=== PATIENT | female | born 1950 | race Hispanic/Latino ===

== ENCOUNTER 2018-02-08 21:43 | Emergency (ER) | payer MEDICARE ==
[2018-02-08] MEDS ORDERED: Ketorolac Tromethamine 30 MG/ML VIAL ONE (22:55)
[2018-02-08] MEDS ORDERED: Morphine 4 MG/ML VIAL ONE (22:55)
[2018-02-08] MEDS ORDERED: Dexamethasone 4 mg/ml Vial ONE (22:56)
--- NOTE | 2018-02-08 22:58 | RAD ---
LUMBAR SPINE THREE VIEWS: HISTORY: A 67-year-old female with low back pain. COMPARISON: 01/04/2014 FINDINGS: Postoperative laminectomy and pedicle screw placement at L5-S1 with an intradiskal prosthesis. There is evidence for a gallstone seen in the right upper quadrant region. Generalized disk osteophytosis and facet arthrosis, evidence for spondylosis. No evidence for acute compression fracture. IMPRESSION: 1. Postoperative changes at L5-S1. 2. Lumbar spondylosis. 3. Evidence for a gallstone. POS: JUHI
[2018-02-08 23:21] LABS: #Basophils 0.1 thou/uL (0.0-0.2); #Eosinphils 0.1 thou/uL (0.0-0.7); #Lymphocytes 2.6 thou/uL (1.20-3.40); #Monocytes 0.6 thou/uL (0.11-0.59); #Neutrophils 3.1 thou/uL (1.40-6.50); %Basophils 0.8 % (0.0-1.0); %Eosinophils 1.7 % (0.0-10.0); %Lymphocytes 41.1 % (21.0-51.0); %Monocytes 8.6 % (0.0-10.0); %Neutrophils 47.9 % (42.0-75.0); Hemoglobin 11.9 g/dL (12.0-16.0); Mean Corpuscular HGB CONC 34.3 g/dL (32.0-36.0); Mean Corpuscular Hemoglobin 29.8 pg (27.0-31.0); Mean Corpuscular Volume 87.1 fl (81.0-99.0); Mean Platelet Volume 8.6 fL (7.4-10.4); Platelet Count 211 thou/uL (130-400); RBC Distribution Width 12.3 % (11.5-14.5); White Blood Cell (WBC) Count 6.4 thou/uL (4.8-10.8)
[2018-02-08 23:47] LABS: ALT (SGPT) 18 U/L (8-55); AST (SGOT) 16 U/L (5-34); Albumin 3.6 g/dL (3.4-4.8); Alkaline Phosphatase 82 U/L (40-150); Anion Gap 11 mmol/L (10-20); BUN (Urea Nitrogen) 13 mg/dL (9.8-20.1); Bilirubin, Total 0.2 mg/dL (0.2-1.2); Calc. Creatinine Clearance 0 mL/min (70-130); Calcium 8.8 mg/dL (7.8-10.44); Carbon Dioxide 27 mmol/L (23-31); Chloride 107 mmol/L (98-107); Estimated GFR-MDRD 78; Globulin 3.4 g/dL (2.4-3.5); Glucose 199 mg/dL (80-115); Potassium 3.5 mmol/L (3.5-5.1); Sodium 141 mmol/L (136-145)
[2018-02-09] MEDS ORDERED: HYDROcodone/Acetaminophen 10/325 mg Tablet ONE (00:55)
[2018-02-09 01:15] LABS: Bilirubin Negative (Negative); Blood, Urine Negative (Negative); Clarity CLEAR (Clear); Glucose, Urine (Dipstick) 100 mg/dL (Negative); Leukocyte Trace (Negative); Nitrite Negative (Negative); Protein, Urine (Dipstick) Negative (Neg-Trace); Specific Gravity, Urine 1.009 (1.002-1.036); pH, Urine 7.5 (5.0-9.0)
[2018-02-09 01:16] LABS: Bacteria/HPF None Seen HPF (None Seen); Hyaline Casts/LPF 0-3 HYALINE CAST LPF (0-3 Hyaline); RBC/HPF 0-3 HPF (0-3); Squamous Epithelial 0-3 HPF (0-3); WBC/HPF 0-3 HPF (0-3)
== END 2018-02-09 01:33 | disposition home or self-care (01) ==
LOC: ERS 21:43
DX: M54.16 Radiculopathy, lumbar region (principal); I10 Essential (primary) hypertension; E11.40 Type 2 diabetes mellitus with diabetic neuropathy, unspecified; Z79.899 Other long term (current) drug therapy
CPT/HCPCS: 72100; 80053; 81003; 81015; 85025; 96374; 96375; J1100; J1885; J2270

== ENCOUNTER 2018-06-24 10:21 | Emergency (ER) | payer MEDICARE | END 2018-06-24 10:48 | disposition home or self-care (01) | LOC: ERS 10:21 | DX: M72.2 Plantar fascial fibromatosis (principal); I10 Essential (primary) hypertension; E78.5 Hyperlipidemia, unspecified; E11.40 Type 2 diabetes mellitus with diabetic neuropathy, unspecified | CPT/HCPCS: 99283 ==

== ENCOUNTER 2018-08-19 12:09 | Emergency (ER) | payer MEDICARE | END 2018-08-19 12:24 | disposition home or self-care (01) | LOC: ERS 12:09 | DX: S00.83XA Contusion of other part of head, initial encounter (principal); E11.9 Type 2 diabetes mellitus without complications; I10 Essential (primary) hypertension; E78.5 Hyperlipidemia, unspecified; Z79.899 Other long term (current) drug therapy; W20.8XXA Other cause of strike by thrown, projected or falling object, initial encounter | CPT/HCPCS: 99283 ==

== ENCOUNTER 2019-02-10 20:58 | Observation (INO) | payer MEDICARE, OTHER ==
[2019-02-10 21:24] LABS: #Basophils 0.1 thou/uL (0.0-0.2); #Eosinphils 0.1 thou/uL (0.0-0.7); #Lymphocytes 2.5 thou/uL (1.20-3.40); #Monocytes 0.6 thou/uL (0.11-0.59); #Neutrophils 4.1 thou/uL (1.40-6.50); %Basophils 0.9 % (0.0-1.0); %Eosinophils 1.3 % (0.0-10.0); %Lymphocytes 34.3 % (21.0-51.0); %Monocytes 8.2 % (0.0-10.0); %Neutrophils 55.3 % (42.0-75.0); Hemoglobin 12.4 g/dL (12.0-16.0); Mean Corpuscular Hemoglobin 28.8 pg (27.0-31.0); Mean Corpuscular Volume 87.2 fL (78.0-98.0); Mean Platelet Volume 9.1 fL (7.4-10.4); Platelet Count 248 thou/uL (130-400); Red Blood Cell (RBC) Count 4.31 mill/uL (4.20-5.40); White Blood Cell (WBC) Count 7.4 thou/uL (4.8-10.8)
--- NOTE | 2019-02-10 21:47 | RAD ---
XR Chest 1 View Portable History: [Chest pain] Comparison: Radiograph 2014 Findings: Mild blunting left lateral costophrenic sulcus. Calcified granulomas right lung base. No pn eumothorax. Cardiac silhouette and mediastinal contours are within normal limits. Impression: Left basilar atelectasis.
[2019-02-10] MEDS ORDERED: Ondansetron PF 4 MG/2 ML Vial ONE (21:52)
[2019-02-10 21:54] LABS: ALT (SGPT) 18 U/L (8-55); AST (SGOT) 14 U/L (5-34); Alkaline Phosphatase 75 U/L (40-150); Anion Gap 11 mmol/L (10-20); BUN (Urea Nitrogen) 8 mg/dL (9.8-20.1); Bilirubin, Total 0.2 mg/dL (0.2-1.2); CK (CPK) 56 U/L (29-168); Calc. Creatinine Clearance 0 mL/min (70-130); Calcium 9.5 mg/dL (7.8-10.44); Carbon Dioxide 28 mmol/L (23-31); Chloride 107 mmol/L (98-107); Estimated GFR-MDRD 82; Globulin 2.9 g/dL (2.4-3.5); Glucose 107 mg/dL (80-115); Potassium 3.4 mmol/L (3.5-5.1); Protein, Total 6.9 g/dL (6.0-8.3); Sodium 143 mmol/L (136-145)
[2019-02-10] MEDS ORDERED: Nitroglycerin 0.4 MG TAB 1 EACH ONE (22:50)
[2019-02-10] MEDS ORDERED: Acetaminophen 500 MG TAB ONE (22:50)
[2019-02-10] MEDS ORDERED: Aspirin Chewable 81 MG TAB ONE (22:50)
[2019-02-10] MEDS ORDERED: Pregabalin 75 MG CAP PO SCH (23:00)
[2019-02-10] MEDS ORDERED: Acetaminophen 325 MG TAB PO PRN (23:49)
[2019-02-10] MEDS ORDERED: Ondansetron ODT 4 MG TAB PO PRN (23:49)
--- NOTE | 2019-02-11 00:03 | PDOC.FPRHP ---
- History of Present Illness Chief Complaint: chest pain History of Present Illness: This is a 68yo F who presents to the ED for chest pain for the past 3- 4 days. PMH significant for DM and HTN. She states that pain has been intermittent. Describes the pain as sharp in character, starting in the middle of her chest and radiating across the left breast. She states the pain is associated with SOB, dizziness, nausea, and sweating. Endorses palpitations over the last few days. She did have 3 episodes of vomiting over the past few days. She reports that she also had episodes where she felt a heavy pressure on her chest. She endorses that she has been anxious lately - she is planning on getting and her fiance has been gone for 4 months. He is going to be returning soon and she feels "love struck." She also reports abdominal pain that has been present for many months. She states this is a dull pain and is worse after large meals. She feels bloated. She has had a 10lb weight loss over the past couple months that has been intentional with dieting. ED Course: nitro SL, tylneol, ASA, lyrica, zofran - Allergies/Adverse Reactions Allergies Allergy/AdvReac Type Severity Reaction Status Date / Time latex Allergy Intermediate "broke out" Verified 02/11/19 00:56 buprenorphine [From Butrans] Allergy Unknown Verified 02/11/19 00:56 meperidine HCl [From Demerol] Allergy Verified 02/11/19 00:56 - Home Medications Medication Instructions Recorded Confirmed Type Pregabalin [Lyrica] 150 mg PO TID 11/09/13 02/11/19 History traMADol HCl [Ultram] 50 mg PO Q6HR PRN 11/09/13 02/11/19 History Pantoprazole [Protonix] 40 mg PO DAILY 06/14/14 02/11/19 History Atorvastatin Calcium 20 mg PO QPM 02/07/15 02/11/19 History Linaclotide [Linzess] 145 mcg PO ASDIR 02/11/19 02/11/19 History metFORMIN HCl [Metformin HCl ER] 750 mg PO BID 02/11/19 02/11/19 History - History PMHx: DM, HTN, HLD PSHx: lipoma removal, carpal tunnel on right, knee surgery (L), back surgery FHx: Mother: DM, stomach cancer; Dad: aneurysm brain; sister: brain cancer Social: Denies alcohol, drug, or tobacco use - Review of Systems General: reports: weight/appetite/sleep changes (weight loss, intentional). denies: fever/chills, fatigue ENT: denies: nasal congestion, rhinorrhea Respiratory: reports: shortness of breath. denies: cough, congestion Cardiovascular: reports: chest pain, palpitation. denies: edema, paroxysmal nocturnal dyspnea, orthopnea Gastrointestinal: reports: nausea, vomiting. denies: diarrhea, constipation, abdominal pain Genitourinary: denies: dysuria Skin: denies: rashes, lesions Musculoskeletal: denies: pain, tenderness, stiffness, swelling Neurological: denies: syncope, weakness Psychological: reports: anxiety - Vital signs BP: 165/87, Pulse: 79, Resp: 18, Temp: 98.6 (Oral), Pain: 6, O2 sat: 95 on Room Air, Time: 02/10/2019 21:00. BP: 124/75, Pulse: 64, Resp: 18, O2 sat: 98 on Room Air, Time: 02/10/2019 23:53. - Physical Exam Constitutional: NAD, awake, alert and oriented, well developed HEENT: normocephalic and atraumatic, PERRLA, EOMI, grossly normal vision, grossly normal hearing, MMM Neck: supple, FROM, trachea midline, no JVD, no thyromegaly, no bruits Chest: no lesions -Chest: TTP sternum and upper left chest Heart: RRR, normal S1/S2, no murmurs/rubs/gallops, pulses present, no edema Lungs: CTAB, no respiratory distress, good air movement, no wheezing, no retractions Abdomen: soft -Abdomen: TTP in midepigastrium Musculoskeletal: normal structure, normal tone, ROM grossly normal Neurological: no focal deficit Skin: no rash/lesions, good turgor, capillary refill <2 seconds Psychiatric: normal mood and affect FMR H&P: Results - Labs Result Diagrams: 02/10/19 21:17 02/10/19 21:17 Lab results: WBC 7.4 thou/uL (4.8-10.8) 02/10/19 21:17 Hgb 12.4 g/dL (12.0-16.0) 02/10/19 21:17 Hct 37.5 % (36.0-47.0) 02/10/19 21:17 MCV 87.2 fL (78.0-98.0) 02/10/19 21:17 Plt Count 248 thou/uL (130-400) 02/10/19 21:17 Neutrophils % 55.3 % (42.0-75.0) 02/10/19 21:17 Sodium 143 mmol/L (136-145) 02/10/19 21:17 Potassium 3.4 mmol/L (3.5-5.1) L 02/10/19 21:17 Chloride 107 mmol/L (98-107) 02/10/19 21:17 Carbon Dioxide 28 mmol/L (23-31) 02/10/19 21:17 BUN 8 mg/dL (9.8-20.1) L 02/10/19 21:17 Creatinine 0.71 mg/dL (0.6-1.1) 02/10/19 21:17 Glucose 107 mg/dL (80-115) 02/10/19 21:17 Calcium 9.5 mg/dL (7.8-10.44) 02/10/19 21:17 Total Bilirubin 0.2 mg/dL (0.2-1.2) 02/10/19 21:17 AST 14 U/L (5-34) 02/10/19 21:17 ALT 18 U/L (8-55) 02/10/19 21:17 Alkaline Phosphatase 75 U/L (40-150) 02/10/19 21:17 Creatine Kinase 56 U/L (29-168) 02/10/19 21:17 Serum Total Protein 6.9 g/dL (6.0-8.3) 02/10/19 21:17 Albumin 4.0 g/dL (3.4-4.8) 02/10/19 21:17 Lipase 39 U/L (8-78) 02/10/19 21:17 - Radiology Interpretation Chest x-ray Status: report reviewed by me (Left basilar atelectasis) FMR H&P: A/P - Problem List (1) Chest pain Current Visit: No Status: Acute Code(s): R07.9 - CHEST PAIN, UNSPECIFIED (2) Diabetes mellitus Current Visit: No Status: Acute Code(s): E11.9 - TYPE 2 DIABETES MELLITUS WITHOUT COMPLICATIONS (3) GERD (gastroesophageal reflux disease) Current Visit: No Status: Acute Code(s): K21.9 - GASTRO-ESOPHAGEAL REFLUX DISEASE WITHOUT ESOPHAGITIS (4) Hypertension Current Visit: No Status: Acute Code(s): I10 - ESSENTIAL (PRIMARY) HYPERTENSION - Plan Atypical chest pain r/o ACS - Differential includes stable angina vs MSK vs anxiety - Trop neg x1 - TSH nml - CXR: left basilar atelectasis - Will order stress test for tomorrow - Heart score 4 - Monitor VS Hypokalemia - replace 40 mEq KCl, check mag - Recheck BMP in the AM Epigastric pain - RUQ US to evaluate for gallbladder pathology, consider outpatient EGD - protonix daily HTN - home meds HLD - home meds DM - home meds, SS Neuropathy - home meds Dispo: admit to tele obs, <2midnights Code: FULL Diet: CC [address] Mar FMR H&P: Upper Level - Pertinent history 68 yo HF PMH HTN, DM2. Presents with 3-4 day hx CP not associated with activity. Also report several year history of epigastric pain associated with eating. States stomach pain different than chest pain. ER: Labs, EKG, CXR, ASA, nitro, APAP, lyrica - Pertinent findings Vitals: WNL GEN: NAD CV: RRR Pulm: CTA-B Abd: obese, NTND Labs: Trop negative EKG NSR CXR: No acute processes - Plan Date/Time: 02/11/19 0001 I, Ethan Whipple MD, have evaluated this patient and agree with findings/plan as outlined by internet marketing assistant resident. Pertinent changes/additions are listed here. 1. Atypical CP, R/O ACS: trend trop, nitro PRN, EKG if chest pain occurs, NM Stress test tomorrow morning, TSH 2. Hypokalemia: replace 40 mEq KCl, check mag 3. Epigastric pain: RUQ US to evaluate for gallbladder pathology, consider outpatient EGD. 4. Chronic problems per internet marketing assistant note Diet: NPO for stress test PPx: protonix, CODE: FULL Dispo: obs, tele, <[address] Mar. Addendum - Attending - Attending Attestation Date/Time: 02/11/19 0715 I personally evaluated the patient and discussed the management with Dr. Whipple and Rd. I agree with the History, Examination, Assessment and Plan documented above with any addition or exceptions noted below.
[2019-02-11] MEDS ORDERED: Dextrose 5% in Water 1,000 ML IV PRN (00:07)
[2019-02-11] MEDS ORDERED: HumaLOG 300 UNITS/3 ML VIAL SC PRN (00:07)
[2019-02-11] MEDS ORDERED: Dextrose 50% Abboject 50 ML SYRINGE SLOW IVP PRN (00:07)
[2019-02-11 00:53] VITALS: BMI 31.4
[2019-02-11 04:16] LABS: Troponin I 0.011 ng/mL (< 0.028)
--- NOTE | 2019-02-11 05:45 | PDOC.FM ---
- Subjective Subjective: Pt reports improved chest pain overnight. She does state she has been having abdominal pain with no nausea. She states the pain has been going on for months now. She has been seeing [facility] for work up of this. - Objective MAR Reviewed: Yes Vital Signs & Weight: Vital Signs (12 hours) Temp Pulse Resp BP Pulse Ox 02/11/19 04:11 97.5 F L 65 16 123/60 94 L Weight Weight 70.715 kg Result Diagrams: 02/10/19 21:17 02/10/19 21:17 Phys Exam - Physical Examination Constitutional: NAD HEENT: moist MMs Neck: no JVD, full ROM Respiratory: no wheezing, clear to auscultation bilateral Cardiovascular: RRR, no significant murmur Gastrointestinal: soft, no distention, positive bowel sounds Miri umbilical and RUQ tenderness, no rebound Musculoskeletal: no edema, pulses present Neurological: moves all 4 limbs Psychiatric: A&O x 3 Skin: cap refill <2 seconds Dx/Plan (1) Chest pain Code(s): R07.9 - CHEST PAIN, UNSPECIFIED Status: Acute (2) Diabetes mellitus Code(s): E11.9 - TYPE 2 DIABETES MELLITUS WITHOUT COMPLICATIONS Status: Acute (3) GERD (gastroesophageal reflux disease) Code(s): K21.9 - GASTRO-ESOPHAGEAL REFLUX DISEASE WITHOUT ESOPHAGITIS Status: Acute (4) Hypertension Code(s): I10 - ESSENTIAL (PRIMARY) HYPERTENSION Status: Acute (5) Neuropathy Code(s): G62.9 - POLYNEUROPATHY, UNSPECIFIED Status: Acute - Plan Plan: This is a 68 yo female with a pmh of HTN, DM2, HLD Atypical chest pain r/o ACS vs. MSK vs. GERD vs. anxiety -Trop neg x3 -TSH nml -Pending stress tesst Hypokalemia -s/p replacement, pending AM BMP Epigastric pain -RUQ us, appears to have cholilithiasis without signs of acute cholecystitis, pending read -H2 blockers HTN -Continue home meds HLD -Continue home meds DM -Continue home meds, Mild SSI -ACHS accuchecks Neuropathy -Continue home meds Addendum - Attending - Attending Attestation Date/Time: 02/11/19 1054 I personally evaluated the patient and discussed the management with Dr. Amador. I agree with the History, Examination, Assessment and Plan documented above with any addition or exceptions noted below. Patient has been ruled out for ACS. Undergoing stress testing this morning. She has no evidence of cholecystitis but does likely have some symptomatic cholelithiasis not affecting her liver function or biliary tree. Await stress result and if negative can be d/c home with further outpatient management of her gallbladder issues.
--- NOTE | 2019-02-11 07:50 | ULT ---
GALLBLADDER ULTRASOUND: Date: 02/11/19 INDICATION: Epigastric pain. FINDINGS: Shadowing cholelithiasis is present. Gallbladder wall is slightly less than 3 mm in thickness, border line in size. Jones's sign reported as positive by material spreader. Common duct is normal at 5 mm in sudarshan meter. No focal hepatic lesion. No significant ascites. IMPRESSION: Cholelithiasis, borderline size gallbladder wall, and positive Jones's sign. Recommend surgical cons ultation as these imaging findings can be seen in the setting of developing, associated cholecystitis . POS: BRYN
[2019-02-11] MEDS ORDERED: Potassium Chloride 20 MEQ TAB PO SCH ×2 (08:00→13:45)
[2019-02-11] MEDS ORDERED: Metformin Hcl [Metformin Hcl Er] 750 MG PO SCH (09:00)
[2019-02-11] MEDS ORDERED: Aspirin 325 mg Enteric Coated Tablet PO SCH (09:00)
[2019-02-11] MEDS ORDERED: Enoxaparin Sodium 40 MG/0.4 ML SYRINGE SC SCH (09:00)
[2019-02-11] MEDS ORDERED: Famotidine 20 MG TAB PO SCH (09:00)
[2019-02-11] MEDS ORDERED: Linaclotide [Linzess] 145 MCG PO SCH (09:00)
[2019-02-11] MEDS ORDERED: ADENOSINE 60 MG/20 ML VIAL ONE (11:26)
[2019-02-11 13:34] VITALS: BP 140/66; TEMP 97.3
[2019-02-11] MEDS: Pregabalin 75 MG CAP PO SCH ×2 (13:44→14:19)
--- NOTE | 2019-02-11 14:45 | NM ---
MYOCARDIAL PERFUSION SCAN: INDICATIONS: Chest pain. TECHNIQUE: The patient was given 11 millicuries of technetium sestamibi for rest imaging and 33 millicuries for stress imaging. The patient is stressed according to adenosine protocol. TECHNIQUE: The left ventricle is imaged with SPECT imaging. CT attenuation correction obtained. FINDINGS: There is normal activity throughout the left ventricle on stress and rest images. No evidence of rev ersible ischemia. Normal wall motion. Ejection fraction is recorded at 81%. IMPRESSION: Negative sestamibi stress test. POS: JUHI
[2019-02-11] MEDS ORDERED: Atorvastatin Calcium 20 MG TAB PO SCH (21:00)
--- NOTE | 2019-02-12 13:26 | DIS ---
DATE OF ADMISSION: 02/10/2019 DATE OF DISCHARGE: 02/11/2019 ADMITTING ATTENDING: Dr. Arnie Mar. DISCHARGING ATTENDING: Dr. Alireza Alvarez. RESIDENT: Mason Amador DO CONSULT: None. PROCEDURES: Nuclear stress test showing negative for reversible ischemia and EF estimated at 31%. Right upper quadrant ultrasound showing cholelithiasis, borderline gallbladder wall and positive Jones sign. Recommend surgical consult. Portable chest x-ray showing left basilar atelectasis. PRIMARY DIAGNOSES: 1. Atypical chest pain likely due to gastroesophageal reflux disease/anxiety. 2. Hypokalemia. 3. Cholelithiasis without signs of acute cholecystitis. SECONDARY DIAGNOSES: Hypertension, hyperlipidemia, type 2 diabetes, diabetic neuropathy. DISCONTINUED MEDICATIONS: None. DISCHARGE MEDICATIONS: 1. Aspirin 81 mg p.o. daily. 2. Atorvastatin 20 mg p.o. q.300 minutes. 3. Linzess 145 mcg p.o. as directed. 4. Metformin 750 mg p.o. daily. 5. Pantoprazole 40 mg p.o. daily. 6. Lyrica 150 mg p.o. t.i.d. 7. Tramadol 50 mg p.o. q.6 hours p.r.n. pain. HISTORY OF PRESENT ILLNESS/HOSPITAL COURSE: This is a 68-year-old female who presents to the ED with chest pain for the last 3-4 days. She states the pain is intermittent and sharp in nature. She states that it starts in the middle of her chest radiating across the left breast. She reports associated shortness of breath, dizziness, nausea, and sweating. She also reports palpitations in the last few days. Reports a heavy pressure in her chest at times. She does endorse that she has been anxious as she is planning on getting and fiance has been gone for 4 months. The patient was admitted to the hospital and underwent stress testing as described above, which was negative. The patient also found to have cholelithiasis. This was discussed with the patient and discussed the importance of following up with PCP if her worsening pain continues. DISPOSITION: Stable. DISCHARGE INSTRUCTIONS: 1. Location: Home. 2. Diet: Heart healthy, diabetic. 3. Activity: As tolerated. 4. Follow up with [facility] in 1-2 weeks. Job ID: [id number]
--- NOTE | 2019-02-13 18:00 | EKG ---
Test Reason : CP Blood Pressure : / mmHG Vent. Rate : 079 BPM Atrial Rate : 079 BPM P-R Int : 160 ms QRS Dur : 082 ms QT Int : 382 ms P-R-T Axes : 054 005 036 degrees QTc Int : 438 ms Normal sinus rhythm Normal ECG Confirmed by GINGER JOHNSON DO ([id number]), editorial specialist KAYLA THORPE ([id number]) on 02/13/2019 6:00:10 PM Referred By: Confirmed By:GINGER JOHNSON DO
== END 2019-02-11 15:24 | disposition home or self-care (01) ==
LOC: ERS 20:58 → 2SW 23:06
PROVIDERS: ADMIT Emergency Medicine; ATTEND Emergency Medicine
DX: R07.89 Other chest pain (principal); R06.02 Shortness of breath; R42 Dizziness and giddiness; K21.9 Gastro-esophageal reflux disease without esophagitis; R11.0 Nausea; K80.10 Calculus of gallbladder with chronic cholecystitis without obstruction; I10 Essential (primary) hypertension; E11.40 Type 2 diabetes mellitus with diabetic neuropathy, unspecified; E78.5 Hyperlipidemia, unspecified; E87.6 Hypokalemia; F41.9 Anxiety disorder, unspecified; Z79.82 Long term (current) use of aspirin; Z79.84 Long term (current) use of oral hypoglycemic drugs; Z79.899 Other long term (current) drug therapy; Z88.8 Allergy status to other drugs, medicaments and biological substances; Z91.040 Latex allergy status
CPT/HCPCS: 71045; 76705; 78452; 80053; 82550; 82962; 83690; 83735; 84443; 84484 ×2; 85025; 93005; 93017; 94760 ×2; 96374; 99285; A9500; G0378 ×2; 36415; 36416; J0153; J1650; J2405

== ENCOUNTER 2020-02-08 21:30 | Emergency (ER) | payer MEDICARE ==
--- NOTE | 2020-02-09 07:20 | RAD ---
LEFT SHOULDER 3 VIEWS: Date: 02/08/2020 HISTORY: Pain and swelling. COMPARISON: None. FINDINGS: No acute displaced fracture or malalignment. Visualized ribs are intact. IMPRESSION: No acute osseous abnormality. POS: HOME
== END 2020-02-08 22:39 | disposition home or self-care (01) ==
LOC: ERS 21:30
DX: M25.511 Pain in right shoulder (principal); I10 Essential (primary) hypertension; G62.9 Polyneuropathy, unspecified; E11.9 Type 2 diabetes mellitus without complications; E78.5 Hyperlipidemia, unspecified; F41.9 Anxiety disorder, unspecified; F32.9 Major depressive disorder, single episode, unspecified; Z79.899 Other long term (current) drug therapy; W19.XXXA Unspecified fall, initial encounter

== ENCOUNTER 2020-07-18 21:51 | Emergency (ER) | payer MEDICARE ==
[2020-07-18 22:17] LABS: #Basophils 0.1 thou/uL (0.0-0.2); #Eosinphils 0.1 thou/uL (0.0-0.7); #Lymphocytes 2.4 thou/uL (1.20-3.40); #Monocytes 0.5 thou/uL (0.11-0.59); #Neutrophils 3.4 thou/uL (1.40-6.50); %Eosinophils 1.7 % (0.0-10.0); %Lymphocytes 37.7 % (21.0-51.0); %Monocytes 7.5 % (0.0-10.0); %Neutrophils 52.2 % (42.0-75.0); Hemoglobin 12.8 g/dL (12.0-16.0); Mean Corpuscular HGB CONC 33.6 g/dL (32.0-36.0); Mean Corpuscular Hemoglobin 28.5 pg (27.0-31.0); Mean Corpuscular Volume 84.6 fL (78.0-98.0); Mean Platelet Volume 9.5 fL (7.4-10.4); Platelet Count 212 thou/uL (130-400); RBC Distribution Width 12.3 % (11.5-14.5); Red Blood Cell (RBC) Count 4.49 mill/uL (4.20-5.40); White Blood Cell (WBC) Count 6.4 thou/uL (4.8-10.8)
[2020-07-18 22:39] LABS: ALT (SGPT) 9 U/L (8-55); AST (SGOT) 13 U/L (5-34); Albumin 3.9 g/dL (3.4-4.8); Alkaline Phosphatase 85 U/L (40-110); Anion Gap 11 mmol/L (10-20); BUN (Urea Nitrogen) 14 mg/dL (9.8-20.1); Bilirubin, Total 0.4 mg/dL (0.2-1.2); Calc. Creatinine Clearance 0 mL/min (70-130); Calcium 8.9 mg/dL (7.8-10.44); Carbon Dioxide 28 mmol/L (23-31); Chloride 106 mmol/L (98-107); Estimated GFR-MDRD 76; Globulin 3.8 g/dL (2.4-3.5); Glucose 151 mg/dL (80-115); Potassium 3.3 mmol/L (3.5-5.1); Protein, Total 7.7 g/dL (6.0-8.3); Sodium 142 mmol/L (136-145)
[2020-07-18] MEDS ORDERED: Ketorolac Tromethamine 30 MG/ML VIAL ONE (22:43)
[2020-07-18] MEDS ORDERED: Acetaminophen 500 MG TAB ONE (22:43)
--- NOTE | 2020-07-19 07:05 | RAD ---
PORTABLE CHEST: Date: 07/18/2020 HISTORY: Chest pain. COMPARISON: 02/10/2019 study. FINDINGS: Heart size is within normal limits. There are some mild chronic appearing interstitial changes in the bases. No focal infiltrates or signs of failure. IMPRESSION: Chronic appearing lung change. POS: EDD
== END 2020-07-19 00:01 | disposition home or self-care (01) ==
LOC: ERS 21:51
DX: M54.6 Pain in thoracic spine (principal); R03.0 Elevated blood-pressure reading, without diagnosis of hypertension; E87.6 Hypokalemia; I10 Essential (primary) hypertension; F41.9 Anxiety disorder, unspecified; F32.9 Major depressive disorder, single episode, unspecified; E78.5 Hyperlipidemia, unspecified; E11.40 Type 2 diabetes mellitus with diabetic neuropathy, unspecified; Z79.899 Other long term (current) drug therapy
CPT/HCPCS: 36415; 71045; 80053; 84484; 85025; 85379; 93005; 96374; J1885

== ENCOUNTER 2021-06-22 09:07 | Outpatient (CLI) | payer MEDICARE | END 2021-06-22 09:08 | disposition home or self-care (01) | LOC: CT 09:07 | PROVIDERS: ATTEND Family Medicine | DX: R19.01 Right upper quadrant abdominal swelling, mass and lump (principal); K80.20 Calculus of gallbladder without cholecystitis without obstruction | CPT/HCPCS: 74150 ==

== ENCOUNTER 2021-07-15 16:13 | Observation (INO) | payer MEDICARE ==
[2021-07-15 18:34] LABS: #Monocytes 0.4 thou/uL (0.11-0.59); #Neutrophils 4.4 thou/uL (1.40-6.50); %Basophils 0.7 % (0.0-1.0); %Eosinophils 0.6 % (0.0-10.0); %Lymphocytes 29.1 % (21.0-51.0); %Monocytes 6.4 % (0.0-10.0); %Neutrophils 63.3 % (42.0-75.0); Hemoglobin 13.3 g/dL (12.0-16.0); Mean Corpuscular HGB CONC 34.6 g/dL (32.0-36.0); Mean Corpuscular Hemoglobin 30.3 pg (27.0-31.0); Mean Corpuscular Volume 87.6 fL (78.0-98.0); Mean Platelet Volume 8.7 fL (7.4-10.4); Platelet Count 229 thou/uL (130-400); RBC Distribution Width 12.7 % (11.5-14.5); Red Blood Cell (RBC) Count 4.37 mill/uL (4.20-5.40); White Blood Cell (WBC) Count 6.9 thou/uL (4.8-10.8)
[2021-07-15 18:53] LABS: ALT (SGPT) 15 U/L (8-55); AST (SGOT) 15 U/L (5-34); Albumin 3.9 g/dL (3.4-4.8); Alkaline Phosphatase 75 U/L (40-110); Anion Gap 10 mmol/L (10-20); BUN (Urea Nitrogen) 10 mg/dL (9.8-20.1); Bilirubin, Total 0.5 mg/dL (0.2-1.2); Calc. Creatinine Clearance 0 mL/min (70-130); Calcium 9.3 mg/dL (7.8-10.44); Carbon Dioxide 30 mmol/L (23-31); Chloride 104 mmol/L (98-107); Globulin 3.2 g/dL (2.4-3.5); Glucose 130 mg/dL (80-115); Lipase 20 U/L (8-78); Potassium 3.7 mmol/L (3.5-5.1); Protein, Total 7.1 g/dL (5.8-8.1); Sodium 140 mmol/L (136-145)
[2021-07-15] MEDS ORDERED: Ondansetron PF 4 MG/2 ML Vial ONE (19:01)
[2021-07-15] MEDS ORDERED: Morphine 4 MG/ML VIAL ONE (19:01)
[2021-07-15] MEDS ORDERED: Levofloxacin 500 mg/D5W 100 ml Premix Bag ONE (21:01)
[2021-07-15 22:09] LABS: SARS-CoV-2 NAA Rapid Test Not Detected (NotDetected)
[2021-07-15 23:02] VITALS: BMI 28.6
[2021-07-15] MEDS ORDERED: Lactated Ringer's 1,000 ML IV SCH (23:30)
[2021-07-15] MEDS ORDERED: Acetaminophen 325 MG TAB PO PRN (23:30)
[2021-07-15] MEDS ORDERED: Ondansetron PF 4 MG/2 ML Vial IVP PRN ×2 (23:30→23:40)
[2021-07-15] MEDS ORDERED: Ondansetron ODT 4 MG TAB SL PRN (23:30)
[2021-07-15] MEDS ORDERED: Ketorolac Tromethamine 30 MG/ML VIAL IVP PRN (23:38)
[2021-07-15] MEDS ORDERED: Morphine 4 MG/ML VIAL SLOW IVP PRN (23:40)
[2021-07-15] MEDS: Sodium Chloride 0.9% 1,000 ML IV SCH (23:51)
[2021-07-16] MEDS ORDERED: Promethazine HCl 25 MG/ML VIAL IM PRN ×2 (02:00→10:32)
[2021-07-16] MEDS ORDERED: FLU VACC QS2021-22(65YR UP)/PF 240 MCG/0.7 ML SYRINGE IM ONE (09:00)
[2021-07-16] MEDS ORDERED: EPINEPHrine 1 MG/ML AMP ONE (09:16)
[2021-07-16] MEDS ORDERED: Bupivacaine PF 0.5% 30 ML VIAL ONE (09:16)
[2021-07-16] MEDS ORDERED: Midazolam HCl 2 mg/2 ml Vial ONE (09:27)
[2021-07-16] MEDS ORDERED: Scopolamine 1.5 mg/72 hour Patch ONE (09:28)
[2021-07-16] MEDS ORDERED: Ketorolac Tromethamine 30 MG/ML VIAL ONE (09:28)
[2021-07-16] MEDS ORDERED: Fentanyl 100 MCG/2 ML VIAL ONE ×2 (09:31→10:46)
[2021-07-16] MEDS ORDERED: Rocuronium Bromide 10 MG/ML (10ML VIAL) ONE (09:41)
[2021-07-16] MEDS ORDERED: Metoclopramide HCl 10 MG/2 ML VIAL ONE (09:41)
[2021-07-16] MEDS ORDERED: PROPOFOL 200 MG/20 ML VIAL ONE (09:41)
[2021-07-16] MEDS ORDERED: Succinylcholine 200 MG/10 ml SYRINGE FS ONE (09:41)
[2021-07-16] MEDS ORDERED: Ondansetron PF 4 MG/2 ML Vial ONE (09:41)
[2021-07-16] MEDS ORDERED: Glycopyrrolate 0.2 MG/ML 5 ML SYRINGE ONE (09:41)
[2021-07-16] MEDS ORDERED: Lidocaine 1% PF 5 ML VIAL ONE (09:41)
[2021-07-16] MEDS ORDERED: SUGAMMADEX SODIUM 200 MG/2 ML VIAL ONE (10:22)
[2021-07-16] MEDS: Sodium Chloride 0.9% 1,000 ML IV SCH (10:24)
[2021-07-16] MEDS ORDERED: Ondansetron HCl/PF 4 MG/2 ML Vial IVP PRN (10:32)
[2021-07-16] MEDS ORDERED: Promethazine HCl 25 MG/ML VIAL IVPB PRN (10:32)
[2021-07-16] MEDS ORDERED: traMADol HCl 50 MG TAB PO PRN ×2 (10:48→10:50)
[2021-07-16] MEDS ORDERED: Acetaminophen 500 MG TAB PO PRN (10:48)
[2021-07-16] MEDS ORDERED: Ibuprofen 600 MG TAB PO PRN (10:48)
[2021-07-16] MEDS ORDERED: hydrALAZINE 20 MG/ML VIAL ONE (11:22)
[2021-07-16] MEDS: Pregabalin 75 MG CAP PO SCH ×2 (17:25→20:30)
[2021-07-16] MEDS ORDERED: Atorvastatin Calcium 20 MG TAB PO SCH (21:00)
[2021-07-17 07:46] VITALS: BP 114/70; TEMP 97.8
[2021-07-17] MEDS ORDERED: metFORMIN 500 MG TAB PO SCH (08:00)
[2021-07-17] MEDS: Pregabalin 75 MG CAP PO SCH (09:04)
== END 2021-07-17 10:06 | disposition home or self-care (01) ==
LOC: ERS 16:13 → SURG B 20:23 → INTOOBSV 20:23
PROVIDERS: ADMIT Specialist; ATTEND Specialist
PROC: 0FT44ZZ Resection of Gallbladder, Percutaneous Endoscopic Approach (ICD-10-PCS; principal; 2021-07-16)
DX: K80.12 Calculus of gallbladder with acute and chronic cholecystitis without obstruction (principal); E11.9 Type 2 diabetes mellitus without complications; I10 Essential (primary) hypertension; E78.00 Pure hypercholesterolemia, unspecified; Z20.822 Contact with and (suspected) exposure to COVID-19; Z88.5 Allergy status to narcotic agent; Z88.6 Allergy status to analgesic agent; Z88.8 Allergy status to other drugs, medicaments and biological substances; Z91.040 Latex allergy status; Z79.84 Long term (current) use of oral hypoglycemic drugs; Z79.899 Other long term (current) drug therapy
CPT/HCPCS: 47562; 76705; 80053; 82962 ×2; 83690; 84484; 85025; 93005; 96365; 96375; 99285; U0002; 36415; 36416; 88304; 96372; 96376; G0378; J0171; J0360; J1885; J1956; J2250; J2270; J2405; J2550; J2704; J2765; J3010; J7050; S0020

== ENCOUNTER 2022-03-31 17:26 | Emergency (ER) | payer MEDICARE ==
[2022-03-31 18:02] LABS: #Basophils 0.1 thou/uL (0.0-0.2); #Eosinphils 0.1 thou/uL (0.0-0.7); #Lymphocytes 1.8 thou/uL (1.20-3.40); #Monocytes 0.8 thou/uL (0.11-0.59); #Neutrophils 3.4 thou/uL (1.40-6.50); %Eosinophils 2.4 % (0.0-10.0); %Lymphocytes 29.1 % (21.0-51.0); %Monocytes 12.7 % (0.0-10.0); %Neutrophils 54.8 % (42.0-75.0); Mean Corpuscular HGB CONC 33.8 g/dL (32.0-36.0); Mean Corpuscular Hemoglobin 30.6 pg (27.0-31.0); Mean Corpuscular Volume 90.6 fL (78.0-98.0); Platelet Count 191 thou/uL (130-400); RBC Distribution Width 12.6 % (11.5-14.5); Red Blood Cell (RBC) Count 4.25 mill/uL (4.20-5.40); White Blood Cell (WBC) Count 6.2 thou/uL (4.8-10.8)
[2022-03-31 18:23] LABS: ALT (SGPT) 12 U/L (8-55); AST (SGOT) 11 U/L (5-34); Albumin 3.8 g/dL (3.4-4.8); Alkaline Phosphatase 82 U/L (40-110); Anion Gap 14 mmol/L (10-20); BUN (Urea Nitrogen) 11 mg/dL (9.8-20.1); Bilirubin, Total 0.5 mg/dL (0.2-1.2); CK (CPK) 47 U/L (29-168); Calc. Creatinine Clearance 0 mL/min (70-130); Calcium 9.4 mg/dL (7.8-10.44); Carbon Dioxide 27 mmol/L (23-31); Chloride 106 mmol/L (98-107); Globulin 3.3 g/dL (2.4-3.5); Glucose 125 mg/dL (80-115); Potassium 3.6 mmol/L (3.5-5.1); Protein, Total 7.1 g/dL (5.8-8.1); Sodium 143 mmol/L (136-145)
== END 2022-03-31 20:16 | disposition home or self-care (01) ==
LOC: ERS 17:26
DX: U07.1 COVID-19 (principal); E86.0 Dehydration; E11.9 Type 2 diabetes mellitus without complications; I10 Essential (primary) hypertension; Z79.899 Other long term (current) drug therapy
CPT/HCPCS: 80053; 82550; 85025; 96360; 99284; U0003; U0005; 36415

== ENCOUNTER 2023-01-17 21:36 | Emergency (ER) | payer MEDICARE, OTHER ==
[2023-01-17] MEDS ORDERED: Morphine 4 MG/ML VIAL ONE (22:18)
[2023-01-17] MEDS ORDERED: Ondansetron ODT 4 MG TAB ONE (22:21)
== END 2023-01-17 22:47 | disposition home or self-care (01) ==
LOC: ERS 21:36
DX: M79.671 Pain in right foot (principal); M79.672 Pain in left foot; E11.9 Type 2 diabetes mellitus without complications; I10 Essential (primary) hypertension; E78.5 Hyperlipidemia, unspecified; X50.1XXA Overexertion from prolonged static or awkward postures, initial encounter; Z79.899 Other long term (current) drug therapy
CPT/HCPCS: 36416; 96372; 99283; J2270; Q0162

== ENCOUNTER 2023-01-20 11:56 | Outpatient (CLI) | payer OTHER | END 2023-01-20 11:57 | disposition home or self-care (01) | LOC: BICRAD 11:56 | PROVIDERS: ATTEND Family Medicine | DX: M25.571 Pain in right ankle and joints of right foot (principal); M25.572 Pain in left ankle and joints of left foot ==

== ENCOUNTER 2023-05-25 15:21 | Emergency (ER) | payer OTHER ==
[~2023-05-25 15:21] MED LIST: Iopamidol-370 76% 500 ML MDV (1 ML CHARGE) ONE
[2023-05-25 15:53] LABS: #Basophils 0.1 thou/uL (0.0-0.2); #Eosinphils 0.1 thou/uL (0.0-0.7); #Monocytes 0.3 thou/uL (0.11-0.59); #Neutrophils 2.7 thou/uL (1.40-6.50); %Basophils 1.5 % (0.0-1.0); %Eosinophils 1.7 % (0.0-10.0); %Lymphocytes 31.9 % (21.0-51.0); %Monocytes 6.9 % (0.0-10.0); %Neutrophils 57.6 % (42.0-75.0); Hematocrit 37.5 % (36.0-47.0); Hemoglobin 12.6 g/dL (12.0-16.0); Mean Corpuscular HGB CONC 33.6 g/dL (32.0-36.0); Mean Corpuscular Hemoglobin 28.6 pg (27.0-31.0); Platelet Count 234 10x3/uL (130-400); RBC Distribution Width 13.7 % (11.5-14.5); Red Blood Cell (RBC) Count 4.41 mill/uL (4.20-5.40); White Blood Cell (WBC) Count 4.6 10x3/uL (4.8-10.8)
[2023-05-25 16:17] LABS: ALT (SGPT) 10 U/L (8-55); AST (SGOT) 13 U/L (5-34); Albumin 3.7 g/dL (3.4-4.8); Alkaline Phosphatase 72 U/L (40-110); Anion Gap 12 mmol/L (10-20); BUN (Urea Nitrogen) 14 mg/dL (9.8-20.1); Bilirubin, Total 0.5 mg/dL (0.2-1.2); Calc. Creatinine Clearance 0 mL/min (70-130); Calcium 9.2 mg/dL (7.8-10.44); Carbon Dioxide 26 mmol/L (23-31); Chloride 106 mmol/L (98-107); Estimated GFR 80; Globulin 3.2 g/dL (2.4-3.5); Glucose 162 mg/dL (80-115); Lipase 18 U/L (8-78); Potassium 3.6 mmol/L (3.5-5.1); Protein, Total 6.9 g/dL (5.8-8.1); Sodium 140 mmol/L (136-145)
[2023-05-25] MEDS ORDERED: Meclizine HCl 25 MG TAB ONE (17:05)
[2023-05-25] MEDS ORDERED: Famotidine 20 MG TAB ONE (17:05)
== END 2023-05-25 17:15 | disposition home or self-care (01) ==
LOC: ERS 15:21
DX: R42 Dizziness and giddiness (principal); R10.13 Epigastric pain; E11.40 Type 2 diabetes mellitus with diabetic neuropathy, unspecified; E78.5 Hyperlipidemia, unspecified; I10 Essential (primary) hypertension; Z79.899 Other long term (current) drug therapy; Z79.82 Long term (current) use of aspirin
CPT/HCPCS: 36416; 74177; 80053; 83690; 85025; Q9967

== ENCOUNTER 2023-06-01 03:34 | Emergency (ER) | payer OTHER ==
[2023-06-01] MEDS ORDERED: Ketorolac Tromethamine 30 MG/ML VIAL ONE (05:08)
[2023-06-01] MEDS ORDERED: HYDROcodone/Acetaminophen 10/325 mg Tablet ONE (05:42)
== END 2023-06-01 06:23 | disposition home or self-care (01) ==
LOC: ERS 03:34
DX: S82.454A Nondisplaced comminuted fracture of shaft of right fibula, initial encounter for closed fracture (principal); E11.40 Type 2 diabetes mellitus with diabetic neuropathy, unspecified; I10 Essential (primary) hypertension; W10.1XXA Fall (on)(from) sidewalk curb, initial encounter
CPT/HCPCS: J1885

== ENCOUNTER 2023-10-07 02:13 | Observation (INO) | payer MEDICARE, OTHER ==
[2023-10-07] MEDS ORDERED: Nitroglycerin 2% Ointment 1 INCH/1 GM Packet ONE (03:04)
[2023-10-07 03:09] LABS: #Eosinphils 0.1 thou/uL (0.0-0.7); #Monocytes 0.4 thou/uL (0.11-0.59); #Neutrophils 2.8 thou/uL (1.40-6.50); %Basophils 0.7 % (0.0-1.0); %Eosinophils 1.5 % (0.0-10.0); %Lymphocytes 37.5 % (21.0-51.0); %Monocytes 8.1 % (0.0-10.0); Hematocrit 35.7 % (36.0-47.0); Mean Corpuscular HGB CONC 33.6 g/dL (32.0-36.0); Mean Corpuscular Hemoglobin 28.3 pg (27.0-31.0); Mean Corpuscular Volume 84.2 fl (78.0-98.0); Mean Platelet Volume 11.5 fL (7.4-10.4); Platelet Count 219 10x3/uL (130-400); RBC Distribution Width 13.8 % (11.5-14.5); Red Blood Cell (RBC) Count 4.24 mill/uL (4.20-5.40); White Blood Cell (WBC) Count 5.5 10x3/uL (4.8-10.8)
[2023-10-07] MEDS ORDERED: Ondansetron PF 4 MG/2 ML Vial ONE ×2 (03:11→15:39)
[2023-10-07 03:37] LABS: Troponin I Less than 0.010 ng/mL (< 0.028)
[2023-10-07 03:38] LABS: ALT (SGPT) 21 U/L (8-55); AST (SGOT) 19 U/L (5-34); Albumin 3.8 g/dL (3.4-4.8); Alkaline Phosphatase 80 U/L (40-110); Anion Gap 14 mmol/L (10-20); BUN (Urea Nitrogen) 19 mg/dL (9.8-20.1); Bilirubin, Total 0.4 mg/dL (0.2-1.2); Calc. Creatinine Clearance 0 mL/min (70-130); Calcium 8.7 mg/dL (7.8-10.44); Carbon Dioxide 21 mmol/L (23-31); Chloride 108 mmol/L (98-107); Estimated GFR 91; Glucose 161 mg/dL (80-115); Potassium 3.2 mmol/L (3.5-5.1); Protein, Total 6.8 g/dL (5.8-8.1); Sodium 140 mmol/L (136-145)
[2023-10-07] MEDS ORDERED: Potassium Chloride 20 MEQ TAB ONE (03:56)
[2023-10-07 04:20] LABS: Bacteria/HPF None Seen HPF (None Seen); Bilirubin Negative (Negative); Blood, Urine Negative (Negative); CAUTI Indications for Culture Dysuria,urgency,freq; Clarity Clear (Clear); Glucose, Urine (Dipstick) Normal (Negative); Ketone, Urine Negative (Negative); Leukocyte Negative Leu/uL (Negative); Nitrite Negative (Negative); Protein, Urine (Dipstick) Negative (Neg-Trace); RBC/HPF 0-3 HPF (0-3); Specific Gravity, Urine 1.007 (1.002-1.036); Squamous Epithelial 0-3 HPF (0-3); Urobilinogen Normal mg/dL (Less than 2); WBC/HPF 0-3 HPF (0-3); pH, Urine 6.5 (5.0-9.0)
[2023-10-07] MEDS ORDERED: Ondansetron ODT 4 MG TAB PO PRN (04:35)
[2023-10-07] MEDS ORDERED: Acetaminophen 325 MG TAB PO PRN (04:35)
[2023-10-07 04:43] LABS: Urine Culture Reflex No No
[2023-10-07] MEDS ORDERED: Nitroglycerin 0.4 MG TAB (25 Tab Bottle) SL PRN (04:51)
[2023-10-07] MEDS ORDERED: Ketorolac Tromethamine 30 MG (1 mL) VIAL IVP SCH (05:00)
[2023-10-07] MEDS ORDERED: Aspirin 325 MG TAB PO SCH (05:15)
[2023-10-07 05:27] VITALS: BMI 28.5
[2023-10-07 06:09] LABS: Troponin I Less than 0.010 ng/mL (< 0.028)
[2023-10-07 06:19] LABS: Cardiac Risk 3.6 (Less than 4.5)
[2023-10-07 07:34] VITALS: TEMP 98
[2023-10-07] MEDS ORDERED: Aspirin 325 MG TAB ONE (07:35)
[2023-10-07] MEDS ORDERED: Acetaminophen 325 MG TAB ONE (07:35)
[2023-10-07] MEDS ORDERED: glyBURIDE 2.5 MG TAB PO SCH (08:00)
[2023-10-07 08:19] LABS: Troponin I Less than 0.010 ng/mL (< 0.028)
[2023-10-07] MEDS ORDERED: Lisinopril 20 MG TAB PO SCH (09:00)
[2023-10-07] MEDS ORDERED: Empagliflozin 10 MG TAB PO SCH (09:00)
[2023-10-07] MEDS ORDERED: Gabapentin 300 MG CAP ONE ×2 (09:36→15:33)
[2023-10-07] MEDS ORDERED: Lisinopril 20 MG TAB ONE (09:37)
[2023-10-07] MEDS: Gabapentin 300 MG CAP PO SCH ×2 (09:42→15:48)
[2023-10-07 09:43] VITALS: BP 143/62
[2023-10-07] MEDS ORDERED: Nitroglycerin 2% Ointment 1 INCH/1 GM Packet TOP SCH (11:00)
[2023-10-07] MEDS ORDERED: ADENOSINE 60 MG/20 ML SDV ONE (11:48)
[2023-10-07 12:19] LABS: Hemoglobin A1c 7.6 % (4.0-6.0)
[2023-10-07] MEDS ORDERED: Atorvastatin Calcium 20 MG TAB PO SCH (21:00)
== END 2023-10-07 17:00 | disposition home or self-care (01) ==
LOC: ERS 02:13 → ERHOLD 04:03 → INTOOBSV 04:03
PROVIDERS: ADMIT Emergency Medicine; ATTEND Emergency Medicine
DX: K21.9 Gastro-esophageal reflux disease without esophagitis (principal); E11.9 Type 2 diabetes mellitus without complications; I10 Essential (primary) hypertension; E78.5 Hyperlipidemia, unspecified; E87.6 Hypokalemia; Z90.49 Acquired absence of other specified parts of digestive tract; Z79.899 Other long term (current) drug therapy; Z79.84 Long term (current) use of oral hypoglycemic drugs; Z91.040 Latex allergy status; Z88.5 Allergy status to narcotic agent; Z98.890 Other specified postprocedural states
CPT/HCPCS: 36415; 71045; 76705; 78452; 80053; 80061; 81001; 83036; 83690; 83880; 84443; 84484; 85025; 93005; 93017; 96374; 96376; A9502; G0378; J0153; J2405

== ENCOUNTER 2023-11-25 10:26 | Outpatient (CLI) | payer MEDICARE | END 2023-11-25 10:27 | disposition home or self-care (01) | LOC: BICRAD 10:26 | PROVIDERS: ATTEND Student in an Organized Health Care Education/Training Program | DX: M25.571 Pain in right ankle and joints of right foot (principal); M25.561 Pain in right knee; M84.471D Pathological fracture, right ankle, subsequent encounter for fracture with routine healing; M21.961 Unspecified acquired deformity of right lower leg; M77.51 Other enthesopathy of right foot and ankle ==

== ENCOUNTER 2025-09-01 17:28 | Inpatient (IN) | payer MEDICARE ==
[2025-09-01 18:28] LABS: #Basophils 0.05 10x3/uL (0.0-0.2); #Eosinophils 0.04 10x3/uL (0.0-0.7); #Monocytes 0.41 10x3/uL (0.11-0.59); #Neutrophils 5.51 10x3/uL (1.40-6.50); %Basophils 0.7 % (0.0-1.0); %Eosinophils 0.5 % (0.0-10.0); %Lymphocytes 20.5 % (21.0-51.0); %Monocytes 5.4 % (0.0-10.0); %Neutrophils 72.5 % (42.0-75.0); Hematocrit 40.3 % (36.0-47.0); Hemoglobin 13.5 g/dL (12.0-16.0); Mean Corpuscular Hemoglobin 28.0 pg (27.0-31.0); Mean Corpuscular Volume 83.6 fL (78.0-98.0); Platelet Count 241 10x3/uL (130-400); Red Blood Cell (RBC) Count 4.82 mill/uL (4.20-5.40); White Blood Cell (WBC) Count 7.60 10x3/uL (4.8-10.8)
[2025-09-01 18:48] LABS: ALT (SGPT) 15 U/L (Less than 34); AST (SGOT) 25 U/L (11-34); Albumin 4.2 g/dL (3.1-4.5); Alkaline Phosphatase 85 U/L (40-110); Anion Gap 16 mmol/L (10-20); BUN (Urea Nitrogen) 24 mg/dL (9.8-20.1); Bilirubin, Total 0.4 mg/dL (0.3-1.2); Calc. Creatinine Clearance 0 mL/min (70-130); Calcium 9.4 mg/dL (7.8-10.44); Carbon Dioxide 26 mmol/L (23-31); Chloride 105 mmol/L (98-107); Globulin 3.6 g/dL (2.4-3.5); Glucose 327 mg/dL (83-110); Potassium 3.3 mmol/L (3.5-5.1); Sodium 144 mmol/L (136-145)
[2025-09-01] MEDS ORDERED: Nitroglycerin 0.4 MG TAB 1 EACH ONE (19:18)
[2025-09-01] MEDS ORDERED: Ondansetron PF 4 MG/2 ML Vial ONE (19:18)
[2025-09-01] MEDS ORDERED: Aspirin Chewable 81 MG TAB ONE (20:20)
[2025-09-01] MEDS ORDERED: Acetaminophen 500 MG TAB ONE (20:20)
[2025-09-01] MEDS ORDERED: Nitroglycerin 2% Ointment 1 INCH/1 GM Packet ONE (20:22)
[2025-09-01] MEDS ORDERED: Glucagon 1 MG/ML KIT IM PRN (23:08)
[2025-09-01] MEDS ORDERED: Dextrose 50% Abboject 50 ML SYRINGE SLOW IVP PRN (23:08)
[2025-09-01] MEDS ORDERED: Nitroglycerin 0.4 MG TAB (25 Tab Bottle) SL PRN (23:21)
[2025-09-01 23:33] LABS: Lipase 48 U/L (8-78); Magnesium 1.8 mg/dL (1.6-2.6)
[2025-09-02] MEDS: Enoxaparin 60 MG (0.6 mL) SYRINGE SC SCH (01:01)
[2025-09-02 01:14] VITALS: BMI 27.3
[2025-09-02] MEDS: Acetaminophen 500 MG TAB PO PRN (03:49)
[2025-09-02 04:13] LABS: #Basophils 0.05 10x3/uL (0.0-0.2); #Eosinophils 0.05 10x3/uL (0.0-0.7); #Monocytes 0.49 10x3/uL (0.11-0.59); #Neutrophils 4.02 10x3/uL (1.40-6.50); %Basophils 0.8 % (0.0-1.0); %Eosinophils 0.8 % (0.0-10.0); %Lymphocytes 27.1 % (21.0-51.0); %Monocytes 7.7 % (0.0-10.0); %Neutrophils 63.4 % (42.0-75.0); Hematocrit 33.0 % (36.0-47.0); Hemoglobin 10.9 g/dL (12.0-16.0); Mean Corpuscular Hemoglobin 27.9 pg (27.0-31.0); Mean Corpuscular Volume 84.6 fL (78.0-98.0); Platelet Count 199 10x3/uL (130-400); Red Blood Cell (RBC) Count 3.90 mill/uL (4.20-5.40); White Blood Cell (WBC) Count 6.34 10x3/uL (4.8-10.8)
[2025-09-02 04:52] LABS: Albumin 3.2 g/dL (3.1-4.5); Chloride 107 mmol/L (98-107); Potassium 3.4 mmol/L (3.5-5.1); Sodium 141 mmol/L (136-145)
[2025-09-02 04:53] LABS: Calcium 8.4 mg/dL (7.8-10.44); Glucose 243 mg/dL (83-110)
[2025-09-02 04:54] LABS: Globulin 2.7 g/dL (2.4-3.5); Triglycerides 103 mg/dL (Less than 150)
[2025-09-02 04:55] LABS: Anion Gap 12 mmol/L (10-20); Carbon Dioxide 25 mmol/L (23-31)
[2025-09-02 04:57] LABS: Alkaline Phosphatase 62 U/L (40-110); Bilirubin, Total 0.2 mg/dL (0.3-1.2); Calc. Creatinine Clearance 57 mL/min (70-130)
[2025-09-02 04:58] LABS: BUN (Urea Nitrogen) 26 mg/dL (9.8-20.1)
[2025-09-02 04:59] LABS: Cardiac Risk 4.5 (Less than 4.5); Cholesterol 136 mg/dl (< 200 Desired); HDL Cholesterol 30 mg/dL (>60 Neg Risk); LDL Cholesterol, Calculated 85 mg/dL
[2025-09-02 05:00] LABS: ALT (SGPT) 12 U/L (Less than 34); AST (SGOT) 13 U/L (11-34)
[2025-09-02] MEDS: Pantoprazole 40 MG DR.TAB PO SCH (08:46)
[2025-09-02] MEDS: Gabapentin 300 MG CAP PO SCH (08:48)
[2025-09-02] MEDS: Metoclopramide HCl 10 MG (2 mL) VIAL IVP SCH (08:48)
[2025-09-02] MEDS: PNEUMOC 20-VAL CONJ-DIP CRM/PF 0.5 ML SYRINGE IM ONE (08:50)
[2025-09-02] MEDS: Lidocaine 2% Viscous Solution 10 ML, Aluminum & Magnesium Hydroxide 30 ML SSW SCH (08:59)
[2025-09-02] MEDS ORDERED: Non-Formulary Item 1 EACH (Gabapentin [Gabapentin] 600 MG Tablet) PO SCH (09:00)
[2025-09-02] MEDS ORDERED: Enoxaparin 60 MG (0.6 mL) SYRINGE SC SCH (09:00)
[2025-09-02] MEDS ORDERED: Metoclopramide HCl 10 MG (2 mL) VIAL IVP PRN (14:29)
[2025-09-02 21:18] VITALS: BMI 27.3
[2025-09-03] MEDS: FLU (Fluad Triv) 25-26 (65UP)PF 45 MCG/0.5 ML Syringe IM ONE (01:30)
[2025-09-03 05:29] LABS: #Basophils 0.06 10x3/uL (0.0-0.2); #Eosinophils 0.09 10x3/uL (0.0-0.7); #Monocytes 0.44 10x3/uL (0.11-0.59); #Neutrophils 2.96 10x3/uL (1.40-6.50); %Basophils 1.1 % (0.0-1.0); %Eosinophils 1.7 % (0.0-10.0); %Lymphocytes 34.5 % (21.0-51.0); %Monocytes 8.1 % (0.0-10.0); %Neutrophils 54.2 % (42.0-75.0); Hematocrit 33.8 % (36.0-47.0); Hemoglobin 11.2 g/dL (12.0-16.0); Mean Corpuscular Hemoglobin 28.1 pg (27.0-31.0); Mean Corpuscular Volume 84.7 fL (78.0-98.0); Platelet Count 194 10x3/uL (130-400); Red Blood Cell (RBC) Count 3.99 mill/uL (4.20-5.40); White Blood Cell (WBC) Count 5.45 10x3/uL (4.8-10.8)
[2025-09-03 05:47] LABS: ALT (SGPT) 25 U/L (Less than 34); AST (SGOT) 23 U/L (11-34); Albumin 3.2 g/dL (3.1-4.5); Alkaline Phosphatase 69 U/L (40-110); Anion Gap 11 mmol/L (10-20); BUN (Urea Nitrogen) 19 mg/dL (9.8-20.1); Bilirubin, Total 0.2 mg/dL (0.3-1.2); Calc. Creatinine Clearance 67 mL/min (70-130); Calcium 8.7 mg/dL (7.8-10.44); Carbon Dioxide 27 mmol/L (23-31); Chloride 108 mmol/L (98-107); Globulin 2.8 g/dL (2.4-3.5); Glucose 203 mg/dL (83-110); Potassium 3.8 mmol/L (3.5-5.1); Sodium 142 mmol/L (136-145)
[2025-09-03] MEDS: Lisinopril 20 MG TAB PO SCH (10:32)
[2025-09-03] MEDS: Insulin Glargine 30 UNITS/0.3 ML VIAL SC SCH (10:33)
[2025-09-03] MEDS: Aspirin 81 mg Enteric Coated Tablet PO SCH (11:26)
[2025-09-03] MEDS: Carvedilol 3.125 MG TAB PO SCH (16:27)
[2025-09-04 06:56] LABS: #Basophils 0.06 10x3/uL (0.0-0.2); #Eosinophils 0.10 10x3/uL (0.0-0.7); #Monocytes 0.49 10x3/uL (0.11-0.59); #Neutrophils 3.70 10x3/uL (1.40-6.50); %Basophils 0.9 % (0.0-1.0); %Eosinophils 1.5 % (0.0-10.0); %Lymphocytes 32.4 % (21.0-51.0); %Monocytes 7.6 % (0.0-10.0); %Neutrophils 57.1 % (42.0-75.0); Hematocrit 34.3 % (36.0-47.0); Hemoglobin 11.2 g/dL (12.0-16.0); Mean Corpuscular Hemoglobin 27.9 pg (27.0-31.0); Mean Corpuscular Volume 85.3 fL (78.0-98.0); Platelet Count 190 10x3/uL (130-400); Red Blood Cell (RBC) Count 4.02 mill/uL (4.20-5.40); White Blood Cell (WBC) Count 6.48 10x3/uL (4.8-10.8)
[2025-09-04 07:20] LABS: ALT (SGPT) 18 U/L (Less than 34); AST (SGOT) 15 U/L (11-34); Albumin 3.3 g/dL (3.1-4.5); Alkaline Phosphatase 68 U/L (40-110); Anion Gap 12 mmol/L (10-20); BUN (Urea Nitrogen) 17 mg/dL (9.8-20.1); Bilirubin, Total 0.3 mg/dL (0.3-1.2); Calc. Creatinine Clearance 68 mL/min (70-130); Calcium 9.0 mg/dL (7.8-10.44); Carbon Dioxide 28 mmol/L (23-31); Chloride 107 mmol/L (98-107); Globulin 2.8 g/dL (2.4-3.5); Glucose 165 mg/dL (83-110); Potassium 3.8 mmol/L (3.5-5.1); Sodium 143 mmol/L (136-145)
[2025-09-04] MEDS: Lisinopril 20 MG TAB PO SCH (08:43)
[2025-09-04] MEDS: Insulin Glargine 30 UNITS/0.3 ML VIAL SC SCH (08:43)
[2025-09-04] MEDS: Aspirin 81 mg Enteric Coated Tablet PO SCH (08:43)
[2025-09-05 04:09] LABS: #Basophils 0.05 10x3/uL (0.0-0.2); #Eosinophils 0.09 10x3/uL (0.0-0.7); #Monocytes 0.47 10x3/uL (0.11-0.59); #Neutrophils 4.20 10x3/uL (1.40-6.50); %Basophils 0.7 % (0.0-1.0); %Eosinophils 1.3 % (0.0-10.0); %Lymphocytes 30.2 % (21.0-51.0); %Monocytes 6.8 % (0.0-10.0); %Neutrophils 60.6 % (42.0-75.0); Hematocrit 35.1 % (36.0-47.0); Hemoglobin 11.7 g/dL (12.0-16.0); Mean Corpuscular Hemoglobin 28.1 pg (27.0-31.0); Mean Corpuscular Volume 84.2 fL (78.0-98.0); Platelet Count 197 10x3/uL (130-400); Red Blood Cell (RBC) Count 4.17 mill/uL (4.20-5.40); White Blood Cell (WBC) Count 6.93 10x3/uL (4.8-10.8)
[2025-09-05 04:26] LABS: ALT (SGPT) 16 U/L (Less than 34); AST (SGOT) 15 U/L (11-34); Albumin 3.3 g/dL (3.1-4.5); Alkaline Phosphatase 68 U/L (40-110); Anion Gap 14 mmol/L (10-20); BUN (Urea Nitrogen) 22 mg/dL (9.8-20.1); Bilirubin, Total 0.2 mg/dL (0.3-1.2); Calc. Creatinine Clearance 70 mL/min (70-130); Calcium 9.1 mg/dL (7.8-10.44); Carbon Dioxide 28 mmol/L (23-31); Chloride 106 mmol/L (98-107); Globulin 2.9 g/dL (2.4-3.5); Glucose 163 mg/dL (83-110); Potassium 3.7 mmol/L (3.5-5.1); Sodium 144 mmol/L (136-145)
[2025-09-06 04:04] LABS: #Basophils 0.06 10x3/uL (0.0-0.2); #Eosinophils 0.08 10x3/uL (0.0-0.7); #Monocytes 0.47 10x3/uL (0.11-0.59); #Neutrophils 4.06 10x3/uL (1.40-6.50); %Basophils 0.9 % (0.0-1.0); %Eosinophils 1.1 % (0.0-10.0); %Lymphocytes 33.1 % (21.0-51.0); %Monocytes 6.7 % (0.0-10.0); %Neutrophils 57.9 % (42.0-75.0); Hematocrit 35.0 % (36.0-47.0); Hemoglobin 11.2 g/dL (12.0-16.0); Mean Corpuscular Hemoglobin 27.6 pg (27.0-31.0); Mean Corpuscular Volume 86.2 fL (78.0-98.0); Platelet Count 202 10x3/uL (130-400); Red Blood Cell (RBC) Count 4.06 mill/uL (4.20-5.40); White Blood Cell (WBC) Count 7.01 10x3/uL (4.8-10.8)
[2025-09-06 04:29] LABS: ALT (SGPT) 16 U/L (Less than 34); AST (SGOT) 14 U/L (11-34); Albumin 3.3 g/dL (3.1-4.5); Alkaline Phosphatase 67 U/L (40-110); Anion Gap 13 mmol/L (10-20); BUN (Urea Nitrogen) 24 mg/dL (9.8-20.1); Bilirubin, Total 0.3 mg/dL (0.3-1.2); Calc. Creatinine Clearance 60 mL/min (70-130); Calcium 8.9 mg/dL (7.8-10.44); Carbon Dioxide 29 mmol/L (23-31); Chloride 104 mmol/L (98-107); Globulin 2.9 g/dL (2.4-3.5); Glucose 166 mg/dL (83-110); Potassium 3.9 mmol/L (3.5-5.1); Sodium 142 mmol/L (136-145)
[2025-09-06] MEDS: Carvedilol 3.125 MG TAB PO SCH (08:09)
[2025-09-06] MEDS: Insulin Glargine 30 UNITS/0.3 ML VIAL SC SCH (08:10)
[2025-09-06 12:04] VITALS: BP 160/72; TEMP 98
== END 2025-09-06 13:00 | disposition home or self-care (01) | DRG 74 ==
LOC: ERS 17:28 → 2SE 22:48 → OBSVTOIN 09-03 08:23
PROVIDERS: ADMIT Family Medicine; ATTEND Family Medicine
DX: E11.43 Type 2 diabetes mellitus with diabetic autonomic (poly)neuropathy (principal); I10 Essential (primary) hypertension; K21.9 Gastro-esophageal reflux disease without esophagitis; M79.7 Fibromyalgia; Z88.8 Allergy status to other drugs, medicaments and biological substances; Z91.040 Latex allergy status; Z90.710 Acquired absence of both cervix and uterus; Z90.49 Acquired absence of other specified parts of digestive tract; Z98.890 Other specified postprocedural states; E87.6 Hypokalemia; K31.84 Gastroparesis; F41.9 Anxiety disorder, unspecified; F32.A Depression, unspecified
CPT/HCPCS: 36415; 36416; 71045; 78452; 80053; 80061; 83036; 83690; 83735; 84100; 84443; 84484; 85025; 93005; 93017; 93306; 96372; 96374; 96375; A9502; G0378; J1650; J1815; J2272; J2405; J2765; J2785; J3010; Q0162